=== PATIENT | female | born 1995 | race Caucasian/White ===

== ENCOUNTER 2024-04-04 12:42 | Inpatient (IN) | payer BC ==
[2024-04-04] MEDS ORDERED: Nalbuphine 10 MG/1 ML Vial IVPUSH PRN (14:41)
[2024-04-04] MEDS ORDERED: Lidocaine 1% 50 ML MDV INJECT PRN (14:41)
[2024-04-04] MEDS ORDERED: Acetaminophen 325 MG Tab PO PRN (14:41)
[2024-04-04] MEDS ORDERED: Oxytocin/0.9 % Sodium Chloride 30 UNIT/500 ML BAG IV SCH (14:45)
[2024-04-04 15:01] LABS: BASOPHILS PERCENT AUTO 0.2 % (0.0-1.0); EOSINOPHILS ABSOLUTE AUTO 0.3 K/mm3 (0.0-0.4); EOSINOPHILS PERCENT AUTO 1.7 % (0.0-6.0); HEMATOCRIT 36.1 % (37.0-47.0); HEMOGLOBIN 11.7 gm/dl (12.0-16.0); IMMATURE GRAN ABSOLUTE AUTO 0.18 K/mm3 (0.00-0.05); LYMPHOCYTES ABSOLUTE AUTO 2.8 K/mm3 (1.0-4.8); LYMPHOCYTES PERCENT AUTO 16.2 % (24.0-44.0); MEAN CORPUSCULAR HEMOGLOBIN 29.5 pg (28.0-32.0); MEAN CORPUSCULAR HGB CONC 32.4 g/dl (32.0-36.0); MEAN CORPUSCULAR VOLUME 90.9 fl (83.0-99.0); MEAN PLATELET VOLUME 9.5 fl (9.4-12.3); MONOCYTES ABSOLUTE AUTO 1.1 K/mm3 (0.0-0.8); MONOCYTES PERCENT AUTO 6.6 % (0.0-8.0); NEUTROPHILS ABSOLUTE AUTO 12.9 K/mm3 (1.8-7.7); NEUTROPHILS PERCENT AUTO 74.3 % (41.0-71.0); PLATELET COUNT,PLT 229 K/mm3 (150-400); RED BLOOD CELL COUNT 3.97 M/mm3 (4.10-5.30); WHITE BLOOD CELL COUNT,WBC 17.39 K/mm3 (3.9-11.3)
[2024-04-04] MEDS: Ondansetron 4 MG/2 ML SDV IVPUSH PRN (18:55)
[2024-04-04] MEDS: Lactated Ringers 1,000 ML IV SCH (19:00)
[2024-04-04] MEDS ORDERED: diphenhydrAMINE 50 MG/ML SDV IVPUSH PRN (19:53)
[2024-04-04] MEDS ORDERED: ePHEDrine 50 MG/ML SDV IVPUSH PRN (19:53)
[2024-04-04] MEDS: Bupivacaine/fentaNYL/NS 100 ML Bag EPIDUR PRN (20:04)
[2024-04-04] MEDS: Calcium Carbonate 500 MG Tab.Chew PO PRN (22:59)
[2024-04-05] MEDS: Oxytocin/0.9 % Sodium Chloride 30 UNIT/500 ML BAG IV SCH (00:45)
[2024-04-05] MEDS ORDERED: Oxytocin/0.9 % Sodium Chloride 30 UNIT/500 ML BAG IV SCH (02:02)
[2024-04-05] MEDS ORDERED: Hydrocortisone Acetate 25 MG Supp RECTAL PRN (02:02)
[2024-04-05] MEDS ORDERED: Bisacodyl 10 MG Supp RECTAL PRN (02:02)
[2024-04-05] MEDS: Ibuprofen 600 MG Tab PO SCH (02:10)
[2024-04-05] MEDS: Benzocaine/Menthol 20%-0.5% Spray 78 GM Cannister TOP PRN (02:37)
[2024-04-05] MEDS: Witch Hazel Medicated Pads 40/Jar TOP PRN (02:37)
[2024-04-05] MEDS: Ferrous Sulfate 324 MG Tab.EC PO SCH (08:02)
[2024-04-05] MEDS: Prenatal Multivitamin with Calcium/Folic Acid/Iron Tab PO SCH (08:02)
[2024-04-05] MEDS: Acetaminophen 325 MG Tab PO PRN (16:53)
[2024-04-06] MEDS: Docusate Sodium 100 MG Cap PO PRN (06:05)
== END 2024-04-06 10:45 | disposition home or self-care (01) | DRG 560 ==
LOC: JD.OBCHECK 12:42 → JD.OB 12:42 → JD.OBCHECK 14:41 → JD.OB 14:41 → OBSVTOIN 04-05 00:43 → JD.OB 04-05 00:44
PROVIDERS: ADMIT Obstetrics & Gynecology; ATTEND Obstetrics & Gynecology
PROC: 10E0XZZ Delivery of Products of Conception, External Approach (ICD-10-PCS; principal; 2024-04-05)
PROC: 10907ZC Drainage of Amniotic Fluid, Therapeutic from Products of Conception, Via Natural or Artificial Opening (ICD-10-PCS; 2024-04-05)
PROC: 0KQM0ZZ Repair Perineum Muscle, Open Approach (ICD-10-PCS; 2024-04-05)
PROC: 0HQ9XZZ Repair Perineum Skin, External Approach (ICD-10-PCS; 2024-04-05)
PROC: 3E0R3BZ Introduction of Anesthetic Agent into Spinal Canal, Percutaneous Approach (ICD-10-PCS; 2024-04-05)
PROC: 00HU33Z Insertion of Infusion Device into Spinal Canal, Percutaneous Approach (ICD-10-PCS; 2024-04-05)
DX: O99.02 Anemia complicating childbirth (principal); Z37.0 Single live birth; O70.1 Second degree perineal laceration during delivery; O70.0 First degree perineal laceration during delivery; Z3A.39 39 weeks gestation of pregnancy; Z98.891 History of uterine scar from previous surgery
CPT/HCPCS: 01967; 36415; 51702; 59025; 85025; 86592; 86850; 86900; 86901; A9270-GY; C1726; J2405; J3490; J7120; J7999